=== PATIENT | female | born 1950 | race Two or more races ===

== ENCOUNTER 2017-09-08 07:30 | Inpatient (IN) | payer OTHER ==
[~2017-09-08] VITALS: Ht 157.5 cm; Wt 54.4 kg
[2017-09-08] MEDS ORDERED: CANAVIS PO (09:35)
[2017-09-08] MEDS ORDERED: IBUPROFEN600 MG PO (09:36)
[2017-10-08] MEDS ORDERED: CIPRO500 MG PO (16:31)
[2017-10-08] MEDS ORDERED: XARELTO10 MG PO (16:31)
[2017-10-08] MEDS ORDERED: PERCOCET 5-3251 EACH PO (16:31)
== END 2017-10-08 18:22 | DRG 470 ==
LOC: O/R 07:30 → SURG 10-06 05:25 → O/R 10-06 05:25 → SURG 10-06 16:02
PROVIDERS: Orthopaedic Surgery
PROC: 0MBL0ZZ Excision of Right Hip Bursa and Ligament, Open Approach (ICD-10-PCS; 2017-10-06)
PROC: 0SR90JZ Replacement of Right Hip Joint with Synthetic Substitute, Open Approach (ICD-10-PCS; principal; 2017-10-06 15:15)
DX: M16.11 Unilateral primary osteoarthritis, right hip (principal); D62 Acute posthemorrhagic anemia; M70.61 Trochanteric bursitis, right hip

== ENCOUNTER 2017-09-08 14:23 | Outpatient (CLI) | payer OTHER ==
[~2017-09-08 14:23] MED LIST: CANAVIS PO; IBUPROFEN600 MG PO
== END 2017-09-08 15:57 | disposition home or self-care (01) ==
LOC: LAB 14:23
DX: N39.0 Urinary tract infection, site not specified (principal); D68.8 Other specified coagulation defects

== ENCOUNTER 2017-09-18 08:32 | Outpatient (CLI) | payer OTHER | END 2017-09-18 08:40 | disposition home or self-care (01) | LOC: LAB 08:32 | DX: N39.0 Urinary tract infection, site not specified (principal) ==

== ENCOUNTER 2019-01-25 10:11 | Emergency (ER) | payer OTHER ==
[~2019-01-25] VITALS: Ht 157.5 cm; Wt 54.4 kg
[~2019-01-25 10:11] MED LIST changes: +CIPRO500 MG PO; +PERCOCET 5-3251 EACH PO; +XARELTO10 MG PO
== END 2019-01-25 14:48 | disposition home or self-care (01) ==
LOC: ER 10:11
DX: N39.0 Urinary tract infection, site not specified (principal); R31.29 Other microscopic hematuria; D25.1 Intramural leiomyoma of uterus

== ENCOUNTER 2019-11-15 16:34 | Outpatient (CLI) | payer OTHER | END 2019-11-15 16:36 | disposition home or self-care (01) | LOC: RAD 16:34 | PROVIDERS: ATTEND General Practice | DX: M54.5 Low back pain (principal) ==

== ENCOUNTER 2019-12-06 12:33 | Outpatient (CLI) | payer OTHER | END 2019-12-06 12:40 | disposition home or self-care (01) | LOC: MRI 12:33 | PROVIDERS: ATTEND General Practice | DX: M54.5 Low back pain (principal) | CPT/HCPCS: 72146; 72148 ==

== ENCOUNTER → 2020-01-17 | Outpatient (CLI) | payer OTHER | END | disposition home or self-care (01) | LOC: RAD 10:10 | PROVIDERS: ATTEND Physical Medicine & Rehabilitation | DX: M54.2 Cervicalgia (principal); G56.03 Carpal tunnel syndrome, bilateral upper limbs ==

== ENCOUNTER 2020-05-28 11:19 | Outpatient (CLI) | payer OTHER | END 2020-05-28 11:25 | disposition home or self-care (01) | LOC: MAMO-SONO 11:19 | PROVIDERS: ATTEND Specialist | DX: Z12.31 Encounter for screening mammogram for malignant neoplasm of breast (principal); R92.0 Mammographic microcalcification found on diagnostic imaging of breast; N64.59 Other signs and symptoms in breast ==

== ENCOUNTER 2020-08-13 10:18 | Outpatient (CLI) | payer OTHER | END 2020-08-13 10:39 | disposition home or self-care (01) | LOC: MRI 10:18 | PROVIDERS: ATTEND Physical Medicine & Rehabilitation | DX: M54.2 Cervicalgia (principal); M54.12 Radiculopathy, cervical region | CPT/HCPCS: 72141 ==

== ENCOUNTER 2022-07-18 10:18 | Outpatient (CLI) | payer OTHER | END 2022-07-18 10:25 | disposition home or self-care (01) | LOC: MAMO-SONO 10:18 | PROVIDERS: ATTEND Specialist | DX: Z12.31 Encounter for screening mammogram for malignant neoplasm of breast (principal) ==

== ENCOUNTER 2022-10-06 08:22 | Outpatient (CLI) | payer OTHER | END 2022-10-06 08:24 | disposition home or self-care (01) | LOC: LAB 08:22 | PROVIDERS: ATTEND Specialist | DX: R41.3 Other amnesia (principal); I11.9 Hypertensive heart disease without heart failure ==

== ENCOUNTER 2024-01-06 11:07 | Outpatient (CLI) | payer OTHER ==
[2024-01-06 12:00] LABS: HEMOGLOBIN 15.5 g/dL (12.0-15.00); MEAN CELL VOLUME 95.2 fL (80.00-100.00); MEAN CORPUSCULAR HEMOGLOBIN 33.5 pg (27.00-32.0); MEAN CORPUSCULAR HGB CONC 35.2 g/dl (32.0-36.0); PLATELET COUNT 306 K/uL (150-450); RED BLOOD COUNT 4.62 M/uL (4.00-6.00); RED CELL DISTRIBUTION WIDTH 12.1 % (11.5-14.5)
[2024-01-06 12:29] LABS: CALCIUM 9.5 mg/dL (8.5-10.1); CREATININE SERUM 0.74 mg/dL (0.55-1.02); GFR 76.72; POTASSIUM 4.43 mEq/L (3.5-5.1)
== END 2024-01-06 11:08 | disposition home or self-care (01) ==
LOC: LAB 11:07
PROVIDERS: ATTEND Specialist
DX: I11.9 Hypertensive heart disease without heart failure (principal)

== ENCOUNTER 2024-01-06 11:36 | Outpatient (CLI) | payer OTHER | END 2024-01-06 11:41 | disposition home or self-care (01) | LOC: MAMO-SONO 11:36 | PROVIDERS: ATTEND Specialist | DX: Z12.31 Encounter for screening mammogram for malignant neoplasm of breast (principal) ==